=== PATIENT | male | born 1990 | race Two or more races ===

== ENCOUNTER 2017-09-07 20:19 | Emergency (ER) | payer OTHER ==
[~2017-09-07] VITALS: Ht 160 cm; Wt 102.5 kg
[2017-09-07 20:31] VITALS: Ht 160 cm; Wt 102.5 kg
[2017-09-07 21:53] LABS: microscopic required? NO
[2017-09-07 21:58] LABS: BASOPHIL % 0.5 % (0-2); PLATELET COUNT 266 x10^3mcL (130-400)
[2017-09-07 22:07] LABS: CALCIUM 9.2 mg/dL (8.5-10.1); CARBON DIOXIDE 27.1 mmol/L (21-32); CHLORIDE SERUM 103 mmol/L (98-107); CREATININE SERUM 1.1 mg/dL (0.7-1.3); GFR1 > 60 mL/min; GLUCOSE SERUM 101 mg/dL (74-106); POTASSIUM SERUM 3.8 mmol/L (3.5-5.1); SODIUM SERUM 137 mmol/L (136-145)
[2017-09-07 22:13] LABS: ALBUMIN 4.4 g/dL (3.4-5.0); ALKALINE PHOSPHATASE 79 U/L (46-116); ALT/SGPT 110 U/L (16-63); AST/SGOT 33 U/L (15-37); BILIRUBIN TOTAL 0.47 mg/dL (0.20-1.00); HDL CHOLESTEROL 46 mg/dL (40-60); LIPASE 106 IU/L (73-393); TOTAL PROTEIN, SERUM 7.9 g/dL (6.4-8.2); TRIGLYCERIDES 124 mg/dL (<150)
[2017-09-07 22:22] LABS: T3 TOTAL 1.39 ng/mL
[2017-09-07 22:23] LABS: CHOLESTEROL 227 mg/dL (<200); CHOLESTEROL/HDL RATIO 4.9
[2017-09-07 22:45] LABS: UA SPECIFIC GRAVITY 1.025 (1.005-1.035); urine erythrocyte NEGATIVE (NEGATIVE)
[2017-09-07 22:54] LABS: FREE T4 1.32 ng/dL (0.76-1.46); FREE THYROXINE INDEX 4.1 ug/dL (1.4-4.5); T4(THYROXINE) 11.4 ug/dL (4.7-13.3)
[2017-09-07 23:09] LABS: AMPHETAMINE QUAL UR NONE DETECTED (See below)
[2017-09-07 23:33] VITALS: BP 128/86
== END 2017-09-07 23:33 | disposition home or self-care (01) ==
LOC: ED 20:19
PROVIDERS: Specialist
DX: R00.2 Palpitations (principal); E86.0 Dehydration; R51 Headache
CPT/HCPCS: 83880; 84439; J7030; Q0092

== ENCOUNTER 2017-09-14 20:24 | Observation (INO) | payer OTHER ==
[~2017-09-14] VITALS: Ht 167.6 cm; Wt 103.6 kg
[2017-09-14 20:30] VITALS: Ht 167.6 cm; Wt 103.6 kg
[2017-09-14 21:49] LABS: BASOPHIL % 0.5 % (0-2); PLATELET COUNT 280 x10^3mcL (130-400); RED CELL DISTRIBUTION WIDTH 13.9 % (11.5-14.5)
[2017-09-14 21:54] LABS: CALCIUM 8.8 mg/dL (8.5-10.1); CARBON DIOXIDE 27.4 mmol/L (21-32); CHLORIDE SERUM 103 mmol/L (98-107); CREATININE SERUM 0.9 mg/dL (0.7-1.3); GFR1 > 60 mL/min; GLUCOSE SERUM 93 mg/dL (74-106); POTASSIUM SERUM 3.6 mmol/L (3.5-5.1); SODIUM SERUM 140 mmol/L (136-145)
[2017-09-14 21:58] LABS: ALBUMIN 4.5 g/dL (3.4-5.0); ALKALINE PHOSPHATASE 86 U/L (46-116); ALT/SGPT 67 U/L (16-63); AST/SGOT 20 U/L (15-37); BILIRUBIN TOTAL 0.5 mg/dL (0.20-1.00)
[2017-09-14 23:52] VITALS: BP 117/77
[2017-09-15 05:49] VITALS: BP 102/63
[2017-09-15 08:23] LABS: BASOPHIL % 0.7 % (0-2); PLATELET COUNT 255 x10^3mcL (130-400); RED CELL DISTRIBUTION WIDTH 14.2 % (11.5-14.5)
[2017-09-15 08:25] LABS: rbc morphology (normal/abnorm) ABNORMAL (NORMAL)
[2017-09-15 09:30] VITALS: BP 122/70
[2017-09-15 10:59] LABS: CALCIUM 9.2 mg/dL (8.5-10.1); CARBON DIOXIDE 27.5 mmol/L (21-32); CHLORIDE SERUM 106 mmol/L (98-107); CREATININE SERUM 0.9 mg/dL (0.7-1.3); GFR1 > 60 mL/min; GLUCOSE SERUM 95 mg/dL (74-106); MAGNESIUM 2.4 mg/dL (1.8-2.4); POTASSIUM SERUM 4.3 mmol/L (3.5-5.1); SODIUM SERUM 143 mmol/L (136-145)
[2017-09-15 12:25] VITALS: BP 122/70
[2017-09-15 12:42] VITALS: BP 129/75
== END 2017-09-15 15:57 | disposition home or self-care (01) | DRG 880 ==
LOC: ED 20:24 → DU 22:45
PROVIDERS: Emergency Medicine; Internal Medicine Pulmonary Disease
DX: F41.9 Anxiety disorder, unspecified (principal); E66.9 Obesity, unspecified; Z68.36 Body mass index [BMI] 36.0-36.9, adult
CPT/HCPCS: 83880; G0378; J1885; J7030; Q0162